=== PATIENT | male | born 1980 | race Caucasian/White ===

== ENCOUNTER → 2018-03-01 12:40 | Outpatient (CLI) | payer MEDICARE, MEDICAID, SELFPAY ==
--- NOTE | 2018-03-01 12:46 | VDUE_ITS ---
Reason For Study: CKD Right Arm Left Arm Right Cephalic Vein at the wrist Left Cephalic Vein at the wrist measures .43 measures .38 x .39 cm. x .46 cm. Right Cephalic Vein in the forearm Left Cephalic Vein in the forearm measures .40 x .41 cm. measures .46 x .47 cm. Right Cephalic Vein below antecub Left Cephalic Vein below antecub measures .35 x .38 cm. measures .42 x .46 cm. Right Cephalic Vein above antecub Left Cephalic Vein above antecub measures .57 x .62 cm. measures .46 x .53 cm. Right Cephalic Vein mid bicep measures .48 Left Cephalic Vein at mid bicep measures .49 x .41 cm. x .50 cm. Right Cephalic Vein at the shoulder Left Cephalic Vein at the shoulder measures .39 x .39 cm. measures .48 x .45 cm. Right Basilic Vein at the origin Basilic vein at origin measures .47 x .47 measures .51 x .55 cm. cm. Right Basilic Vein mid bicep measures .51 Basilic vein at bicep measures .47 x .49 cm. x .51 cm. Basilic vein above antecub measures .46 Right Basilic Vein above antecub x .46 cm. measures .54 x .59 cm. Brachial artery - .42 x .43 cm with a Brachial artery - .47 x .47 cm with a velocity of 122.0 cm/s velocity of 132.0 cm/s Radial artery - .21 x .21 cm with a velocity Radial artery - .19 x .21 cm with a velocity of 124.0 cm/s. of 106.0 cm/s. Interpretation Summary Widely patent and compressible bilateral cephalic and basilic veins with dimensions as noted Normal flow bilateral brachial and radial arteries. Ordering Physician: Hector Davis Referring Physician: Bria Azar Performed By: Jesica Farrell RVT ???
== END ==
PROVIDERS: Family Provider Family Medicine; PCP Family Medicine; Visit Provider Internal Medicine Nephrology
DX: Z01.818 Encounter for other preprocedural examination (principal); N18.4 Chronic kidney disease, stage 4 (severe)
CPT/HCPCS: 93970; 93971; G0365

== ENCOUNTER 2018-04-16 05:22 | Day surgery (SDC) | payer MEDICARE, MEDICAID, SELFPAY ==
--- NOTE | 2018-04-16 05:35 | EKG12_ITS ---
Test Reason : PRE OP Blood Pressure : / mmHG Vent. Rate : 087 BPM Atrial Rate : 087 BPM P-R Int : 136 ms QRS Dur : 096 ms QT Int : 402 ms P-R-T Axes : 013 002 -01 degrees QTc Int : 483 ms Normal sinus rhythm Prolonged QT Abnormal ECG No previous ECGs available Confirmed by VANNA CORTEZ, BHAKTI ([id number]), newspaper photo editor OLIVIA MONTANO ([id number]) on 04/20/2018 3:13:59 PM Referred By: Ryan Escudero Confirmed By:BHAKTI PRABHAKAR MD
[2018-04-16 05:45] VITALS: BP 147/87; PULSE 90; RESP 16; TEMP 36.1; O2SAT 97; BMI 41.5
[2018-04-16 06:11] LABS: Bedside Glucose 236 mg/dL (70-110)
[2018-04-16 06:22] LABS: Hematocrit 31.1 % (40-54); Hemoglobin 10.7 g/dl (13.0-16.5); Mean Corp Hgb Conc 34.4 g/gl (32-36); Mean Corpuscular Hgb 30.5 pg (27.0-32.0); Mean Corpuscular Volume 88.6 fL (80-94); Mean Platelet Vol. 10.2 fl (6.2-12.0); Platelet Count 269 K/mm3 (150-450); RBC Distribution Width CV 12.1 % (11.6-14.6); RBC Distribution Width SD 38.2 fl (35.1-43.9); Red Blood Count 3.51 M/mm3 (4.6-6.2); White Blood Count 8.4 K/mm3 (4.4-11.0)
[2018-04-16 06:30] LABS: Anion Gap 9 (5-15); BUN 41 mg/dL (7-18); BUN/Creat Ratio 9.6 RATIO (10-20); Calcium,Total 8.2 mg/dL (8.5-10.1); Chloride 107 mmol/L (98-107); Creatinine, Serum 4.28 mg/dL (0.70-1.30); EST Glomerular Filtration Rate 17 mL/min (>60); Est Glom Filt Rate - Afr Amer 20 mL/min (>60); Estimated Creatinine Clearance 28.01 ml/min; Glucose 273 mg/dL (74-106); Potassium 3.6 mmol/L (3.5-5.1); Sodium Level 144 mmol/L (136-145)
[2018-04-16 06:35] LABS: Scan Indicated on CBC? Y/N NO
--- NOTE | 2018-04-16 06:46 | DCINST_ITS ---
Discharge Diet: Renal Diet Discharge Activity: May Not Drive - for 2-3 days or while taking narcotic pain medications., May Shower, May Take a Tub Bath - in 5 days. Lifting Restrictions: 5 pounds Keep extremity elevated above heart level: - - Keep arm elevated above the heart level for 3 days. Additional Activity Instructions:: Exercise hand vigorously with a stress ball. Call your doctor if your incision/area has: Continuous Slow Oozing, Sudden Increased Bleeding - apply pressure and call your doctor., Increased Pain/ Swelling, Increased Redness, Foul Smelling Discharge Call your doctor if you observe: Fever of 101 or Higher Suture Line Care: Avoid Pulling/Pushing, Avoid Pinching/Bending Cleanse incision/area with: Keep Dressing Clean & Dry Additional Dressing/Incision Instructions:: Elevate your left arm for comfort. Please keep the dressings clean and dry. You may remove the Harinder wrap and dressings in 3 days. Leave the Steri-Strips on for 1 week. Allergies/Adverse Reactions: Allergies No Known Allergies Allergy (Verified 04/11/18 09:03) Medications to take at Discharge atorvastatin 20 mg tablet 20 mg PO QDAY 03/12/18 cholecalciferol (vitamin D3) 2,000 unit capsule 2,000 unit PO QDAY 03/12/18 clonidine HCl 0.1 mg tablet 0.2 mg PO BID 03/12/18 doxazosin 1 mg tablet 1 mg PO QDAY 03/12/18 famotidine 40 mg tablet 40 mg PO QDAY 03/12/18 furosemide 20 mg tablet 20 mg PO QDAY 03/12/18 gabapentin 300 mg capsule 300 mg PO 4X/DAY 03/12/18 hydralazine 50 mg tablet 50 mg PO TID 03/12/18 insulin aspart U-100 100 unit/mL subcutaneous pen 66 unit SC DAILY 03/12/18 insulin glargine (U-100) 100 unit/mL subcutaneous solution 50 unit SC DAILY 03/12/18 metoprolol succinate ER 100 mg tablet,extended release 24 hr 100 mg PO QDAY 03/12/18 vitamin B12 1,000 mcg-folic acid 400 mcg sublingual tablet 1,000 mg PO DAILY 03/12/18 Aspirin E.C. [Ecotrin] 81 mg PO DAILY@0800 04/10/18 Insulin Aspart [Novolog Flexpen] 54 units SC LUNCH 04/10/18 Insulin Aspart [Novolog Flexpen] 62 units SC DINNER 04/10/18 Insulin Glargine [Lantus SoloStar Pen] 30 units SC QHS 04/10/18 traMADol [Ultram] 50 mg PO Q6H PRN PRN #8 tablet 04/16/18 The following prescriptions were given: traMADol [Ultram] 50 mg PO Q6H PRN PRN #8 tablet PRN Reason: Pain Primary Care Physician: Bria Azar MD [Primary Care Provider] - Test Results: Test results from this visit will be discussed in further detail at your follow- up appointment, if applicable. Please Follow Up With: Ryan Escudero MD - [phone] When: Call to make an appointment for follow up in 10 days.
[2018-04-16] MEDS: Cefazolin 2 GM in 0.9% Normal Saline 100 ML IV (07:03)
[2018-04-16] MEDS: Heparin Injection (Vial) 5,000 UNIT/ML VIAL 5000 UNIT (07:30)
--- NOTE | 2018-04-16 09:17 | OP.PCM_ITS ---
Problem List (1) Chronic renal failure, stage 4 (severe) Status: Acute Report of Operation Date of Procedure: 04/16/18 Pre-Operative Diagnosis: Stage IV chronic renal insufficiency Post-Operative Diagnosis: Same Surgery/Procedure Performed:: Transposition left forearm cephalic vein to radial artery arteriovenous fistula creation Description of Surgical Findings:: Timeout and informed consent was obtained. 37-year-old gent was taken out room. Placed on the table. The left forearm was sterilely prepped and draped. Ultrasound was used to identify the course of the cephalic vein. 0.5% Marcaine mixed 50-50 with 1% lidocaine was used as local anesthetic. Initial 22 cc was injected. The patient Moving his arm so we converted to a LMA general anesthetic. A longitudinal incision was made up the lateral left radial aspect of the forearm. Sharp and blunt dissection was used to tediously dissect side branches free which was secured with 4-0 Vicryl ligatures and hemoclips. The s ections from all the way from the wrist up to the antecubital space. Then I marked the vein. Measured an area to re-tunneled the vein more medially. Marked an area of the radial artery to dissect free. I made a large to positional and dissected the radial artery free elevating it nicely. I then ligated the vein distally at a branch point. I spatulated it at the branch point. I re-tunneled it medial to the harvest incision close to the subcutaneous tissues. The patient then received 12,000 units of heparin. Peripheral vascular clamps were placed on the radial artery. 11 blade was used to make an arteriotomy with this extended with Long scissors. A end-to-side anastomosis created with running 7-0 Prolene. Prior to completion there appeared to be good antegrade flow. The anastomosis was completed. Initially did not appear to be good flow. Inspection revealed that there appeared to be some stenosis of the vein at the antecubital space. I was able to carefully incised the posterior wall of the vein to allow for release. Seem to work with there was good pulsatile flow with a nice audible thrill. It appeared to have a good positional lie. The wound was closed with interrupted 3-0 Vicryl. Wounds were then closed with a running septic or 4 Monocryl. Steri-Strips Telfa soft roll Harinder wrap applied. Sponge and instrument and needle counts were reported to the surgeon to be correct. Blood loss 100 cc. He tolerated the procedure well was taken to the recovery area in satisfactory condition without apparent complication. Specimens none. Drains none. Blood loss 100 cc. Ryan Escudero M.D., F.A.C.S. Type of Anesthesia:: General Anesthesiologist: Inez Arita
[2018-04-16] MEDS: Bupivacaine Mpf 0.5% 30 ML VIAL (09:45)
[2018-04-16 10:00] VITALS: BP 107/82; BP 147/87; PULSE 93; RESP 12; TEMP 36.5; O2SAT 97
[2018-04-16 10:06] LABS: Bedside Glucose 232 mg/dL (70-110)
[2018-04-16 10:15] VITALS: BP 132/85; BP 147/87; PULSE 89; RESP 16; O2SAT 93
[2018-04-16 10:30] VITALS: BP 116/82; BP 147/87; PULSE 88; RESP 16; TEMP 36.3; O2SAT 95
[2018-04-16 11:30] VITALS: BP 133/68; BP 147/87; PULSE 87; RESP 17; TEMP 36.6; O2SAT 97
== END 2018-04-16 11:46 | disposition home or self-care (01) ==
LOC: SDC 05:23 → AC 05:24
PROVIDERS: Family Provider Family Medicine; PCP Family Medicine; Visit Provider Surgery
PROC: (CPT 36821; principal; 2018-04-16 07:00)
DX: I12.9 Hypertensive chronic kidney disease with stage 1 through stage 4 chronic kidney disease, or unspecified chronic kidney disease (principal); E11.22 Type 2 diabetes mellitus with diabetic chronic kidney disease; N18.4 Chronic kidney disease, stage 4 (severe); E78.00 Pure hypercholesterolemia, unspecified; K21.9 Gastro-esophageal reflux disease without esophagitis; F17.220 Nicotine dependence, chewing tobacco, uncomplicated; Z79.4 Long term (current) use of insulin; Z79.82 Long term (current) use of aspirin; Z79.899 Other long term (current) drug therapy
CPT/HCPCS: 01844; 36821; 80048; 82962; 85027; 93005

== ENCOUNTER 2018-06-11 08:41 | Day surgery (SDC) | payer MEDICARE, MEDICAID, SELFPAY ==
[2018-06-08 07:11] VITALS: BMI 42.3
[2018-06-11 09:00] LABS: Hematocrit 33.4 % (40-54); Hemoglobin 11.4 g/dl (13.0-16.5); Mean Corp Hgb Conc 34.1 g/gl (32-36); Mean Corpuscular Hgb 29.8 pg (27.0-32.0); Mean Corpuscular Volume 87.4 fL (80-94); Mean Platelet Vol. 10.5 fl (6.2-12.0); Platelet Count 257 K/mm3 (150-450); RBC Distribution Width CV 11.9 % (11.6-14.6); RBC Distribution Width SD 37.8 fl (35.1-43.9); Red Blood Count 3.82 M/mm3 (4.6-6.2); White Blood Count 10.3 K/mm3 (4.4-11.0)
[2018-06-11 09:04] LABS: Scan Indicated on CBC? Y/N NO
[2018-06-11 09:19] LABS: Anion Gap 12 (5-15); BUN 52 mg/dL (7-18); BUN/Creat Ratio 9.6 RATIO (10-20); Calcium,Total 8.5 mg/dL (8.5-10.1); Chloride 104 mmol/L (98-107); EST Glomerular Filtration Rate 13 mL/min (>60); Est Glom Filt Rate - Afr Amer 16 mL/min (>60); Glucose 413 mg/dL (74-106); Potassium 3.8 mmol/L (3.5-5.1); Sodium Level 139 mmol/L (136-145)
--- NOTE | 2018-06-11 11:12 | OP.PCM_ITS ---
Problem List (1) Chronic renal failure, stage 4 (severe) Status: Acute (2) Problem with dialysis access Status: Acute Qualifiers: Encounter type: initial encounter Qualified Code(s): T82.898A - Other specified complication of vascular prosthetic devices, implants and grafts, initial encounter Report of Operation Date of Procedure: 06/11/18 Pre-Operative Diagnosis: Failure to mature transposed left forearm cephalic vein to radial artery arteriovenous hemodialysis fistula Post-Operative Diagnosis: Arterial venous anastomotic stenosis Surgery/Procedure Performed:: Carbon dioxide left upper extremity fistulogram with 4 x 20 mm Powerflex angioplasty Description of Surgical Findings:: Timeout and informed consent was obtained. 37-year-old gent was taken to the special procedures lab placement the table of the left extremity sterilely prepped.. Ultrasound was used to inspect the left forearm cephalic vein. The vast majority appear to be adequate there appeared to be relative narrowing close to the arterial anastomosis. And so I placed in a under ultrasound guidance 2% lidocaine into the mid forearm and then a micropuncture needle retrograde with flow the micropuncture wire then a 6 Moldovan short sheath dilator. I was able to use an 035 angled Glidewire and a 4 [place] angled [place] cath placed into the radial artery proximal to the anastomosis. I used 15 cc/inj. of carbon dioxide perform fistulogram. Did this of the forearm upper arm and chest area. This demonstrated stenosis at the arterial anastomotic site with a relatively small radial artery. Over the 035 Glidewire placed a 4 x 2 Powerflex balloon and performed balloon angioplasty up to 10 don of pressure. The patient had some mild discomfort so I did not attempt to go beyond that. The balloon was removed. A 4 Moldovan angled glide catheter was reinserted. Follow-up fistulogram now demonstrated improvement. There appeared to be wide open flow now through the fistula. The sheath was removed and a U suture of 4-0 nylon was placed blood loss was minimal no apparent complication Fistulogram demonstrates a widely patent left forearm transposed cephalic vein radial artery AV fistula with good upper arm chest cephalic vein and central venous outflow. There was clinically significant stenosis at the anastomosis but mostly secondary to a very small radial artery. Subsequent to the angioplasty now there appears to be improved flow. Ryan Escudero M.D., F.A.C.S. Type of Anesthesia:: Local
== END 2018-06-11 12:20 | disposition home or self-care (01) ==
LOC: CLSP 08:43
PROVIDERS: Family Provider Family Medicine; PCP Family Medicine; Referring Provider Surgery; Visit Provider Surgery
DX: T82.858A Stenosis of other vascular prosthetic devices, implants and grafts, initial encounter (principal); I12.9 Hypertensive chronic kidney disease with stage 1 through stage 4 chronic kidney disease, or unspecified chronic kidney disease; E11.22 Type 2 diabetes mellitus with diabetic chronic kidney disease; N18.4 Chronic kidney disease, stage 4 (severe); Z99.2 Dependence on renal dialysis; E78.00 Pure hypercholesterolemia, unspecified; Z79.4 Long term (current) use of insulin; Z79.82 Long term (current) use of aspirin; Z79.891 Long term (current) use of opiate analgesic; Z79.899 Other long term (current) drug therapy
CPT/HCPCS: 36415; 36902; 76937; 80048; 85027; 99152; 99153; Q9967; C1725; C1769

== ENCOUNTER → 2020-04-21 12:51 | Outpatient (CLI) | payer MEDICARE, MEDICAID, SELFPAY ==
[2020-04-21 12:39] VITALS: BMI 42.3
[2020-04-21 13:14] LABS: Absolute Neutrophil Count 6.3 X10^3/uL (2.0-7.7); Basophil# 0.07 X10^3/uL; Basophil% 0.6 % (0-1); Eosinophil# 0.24 X10^3/uL; Eosinophils% 2.1 % (0-5); Hematocrit 32.1 % (40-54); Hemoglobin 10.2 g/dL (13.0-16.5); Lymphocyte % 31.3 % (19-41); Mean Corp Hgb Conc 31.8 g/dL (32-36); Mean Corpuscular Hgb 29.8 pg (27.0-32.0); Mean Corpuscular Volume 93.9 fL (80-94); Mean Platelet Vol. 10.1 fl (6.2-12.0); Monocyte# 1.04 X10^3/uL; NRBC Flagged by Analyzer 0.6 % (0-5); Neutrophil % 54.8 % (47-70); Platelet Count 275 K/mm3 (150-450); RBC Distribution Width CV 15.4 % (11.6-14.6); RBC Distribution Width SD 52.6 fl (35.1-43.9); Red Blood Count 3.42 M/mm3 (4.6-6.2); White Blood Count 11.5 K/mm3 (4.4-11.0)
[2020-04-21 13:44] LABS: Anion Gap 11 (5-15); BUN 38 mg/dL (7-18); BUN/Creat Ratio 4.8 RATIO (10-20); Chloride 96 mmol/L (98-107); Creatinine, Serum 7.91 mg/dL (0.70-1.30); EST Glomerular Filtration Rate 8 mL/min (>60); Est Glom Filt Rate - Afr Amer 10 mL/min (>60); Glucose 285 mg/dL (74-106); Potassium 4.2 mmol/L (3.5-5.1); Sodium Level 134 mmol/L (136-145)
== END ==
PROVIDERS: PCP Internal Medicine; Referring Provider Surgery; Visit Provider Surgery
DX: T82.898A Other specified complication of vascular prosthetic devices, implants and grafts, initial encounter (principal)
CPT/HCPCS: 36415; 80048; 85025

== ENCOUNTER 2020-04-30 09:56 | Day surgery (SDC) | payer MEDICARE, MEDICAID, SELFPAY ==
[2020-04-21 12:39] VITALS: BMI 42.3
[2020-04-29 07:49] VITALS: BMI 37.2
--- NOTE | 2020-04-30 10:19 | PCM.HP.BLA ---
Problem List (1) Problem with dialysis access Status: Acute Qualifiers: History and Physical Date of Admission: 04/30/20 Intake Visit Reasons: Decreased Flows & Pressure Chief Complaint: decreased flows Shift Supervisor Melting Required: No Is patient in pain?: Yes (right leg) Allergies acetaminophen [From Tylenol] Allergy (Verified 04/21/20 12:39) Itching Medications atorvastatin 20 mg tablet 20 mg PO QDAY 03/12/18 [History Confirmed 04/21/20] cholecalciferol (vitamin D3) 50 mcg (2,000 unit) capsule 2,000 unit PO QDAY 03/12/18 [History Confirmed 04/21/20] famotidine 40 mg tablet 40 mg PO QDAY 03/12/18 [History Confirmed 04/21/20] gabapentin 300 mg capsule 300 mg PO 4X/DAY 03/12/18 [History Confirmed 04/21/20] Aspirin E.C. [Ecotrin] 81 mg PO DAILY@0800 04/10/18 [History Confirmed 04/21/20] metoprolol tartrate 100 mg tablet 100 mg PO BID 11/04/19 [History Confirmed 04/21/20] clonidine 0.2 mg/24 hr weekly transdermal patch 1 patch TRANSDERMAL QWEEK 12/05/19 [History Confirmed 04/21/20] heparin, porcine (PF) 1 unit/mL intravenous syringe unit INTRA-CATH 12/05/19 [History Confirmed 04/21/20] levetiracetam 250 mg tablet 250 mg PO BID 12/05/19 [History Confirmed 04/21/20] sertraline 50 mg tablet 50 mg PO DAILY 12/05/19 [History Confirmed 04/21/20] flash glucose sensor See Rx Instructions .ROUTE .MEDSUPPLY #2 ea 03/10/20 [Rx Confirmed 04/21/20] insulin regular hum U-500 conc 80 unit SC QPM #42 ml 03/24/20 [Rx Confirmed 04/21/20] [facility] Medical History Chronic renal failure, stage 4 (severe) (Acute) Asthma (Acute) Bone fracture (Acute) Depressive disorder, not elsewhere classified (Acute) Diabetes (Acute) GERD (gastroesophageal reflux disease) (Acute) Neuropathy (Acute) Renal failure (Acute) Seizure (Acute) Stomach ulcer (Acute) Vision problem (Acute) hypercholesterolemia (Acute) Chronic headache (Chronic) HTN (hypertension) (Chronic) Surgical History S/P right knee surgery (Acute) s/p right leg surgery (Acute) Status post aspiration of abscess (Acute) s/p left forearm AV transposition (Acute ~04/16/18) Family History Mother Diabetes Heart disease Hypertension CVA (cerebral vascular accident) Grandmother Diabetes Heart disease Hypertension Grandfather Diabetes Hypertension Uncle Heart disease Social History (Updated 04/21/20 @ 12:[address] Ryan Escudero MD) Smoking Status: Former smoker alcohol intake: never substance use type: does not use what type of physical activity do you participate in: none HPI HPI HPI: JESSICA LISA, is a 39 M who presents to the office today for surgical consultation regarding diminishing flows in his transposed left forearm cephalic vein radial artery AV fistula. He is referred by Dr. Davis and a written copy of my surgical consult recommendations will be returned to him. April 12 4018 I performed a transposition left forearm cephalic vein radial artery AV fistula creation. Then his most recent intervention was June 11 I performed a carbon oxide fistulogram with a 4 x 20 mm Powerflex angioplasty of the arterial anastomotic site with a relatively small radial artery. He states that his dialysis is been going well. He is had diminishing flow from 1200 now down to 500. He still was able to be dialyzed. HPI HPI HPI: JESSICA LISA, is a 39 M who presents to the office today for ROS General General: Yes weight change and fatigue; no appetite, colon cancer, breast cancer or weakness HEENT HEENT: No difficulty swallowing, eye injury, eye surgery, swollen glands or hoarseness Endo Endocrine: Yes diabetes mellitus; no thyroid disease, thyroid cancer, Hair loss, heat intolerance or cold intolerance Skin Skin: No rash or changing moles Breast Breast: No left breast lump, right breast lump, nipple discharge, breast pain, abnormal mammogram, abnormal US or breast enlargement Musc Musculoskeletal: Yes arthritis; no back problems, rheumatoid arthritis, gout or joint pain Cardio Cardiovascular: Yes high blood pressure; no murmur, pacemaker, heart disease, atrial fibrillation, heart attack, heart stent, palpitations, shortness of breat with exertion or chest pain Psych Psychiatric: No depression, anxiety or hearing voices Resp Respiratory: No shortness of breath, Yes sleep apnea, No cough, No COPD, Yes asthma, No emphysema, No wheezing Gastro Gastrointestinal: No abdominal pain, No nausea or vomiting, No diarrhea, No constipation, No blood in stool, Yes acid reflux, No hemorrhoids, No ulcers, No gallbladder problem, No black,tarry stools Javi Hematologic: Yes blood thinners, No blood disorders, No bleeding, No anemia, No blood clots Neuro Neurologic: No system reviewed and no additional complaints, except as docu, No as per HPI, No abnormal walking, No abnormal hearing, No abnormal movements, No abnormal speech, No behavioral changes, No burning sensations, No confusion, No seizure-like activity, No unsteadiness, No dizziness, No localized weakness, No frequent falls, No headache(s), No lack of coordination, No loss of vision, No memory loss, Yes numbness, No other visual disturbances, No radiating pain, No restless legs, No sensory deficit, No fainting, Yes tingling, No tremor(s), No weakness, No other Exam Const General: cooperative, comfortable, no acute distress Nutritional Appearance: obese morbidly obese Orientation: alert, awake, oriented x3 HENMT Head: normal to inspection Chest Breast Palpation: No nipple discharge Resp Effort & Inspection: normal respiratory effort Auscultation: clear to auscultation bilaterally Cardio Rate: regular rate Rhythm: regular rhythm Heart Sounds: no murmurs GI Palpation: soft Extrem Other: Left forearm transposed cephalic vein radial artery AV fistula with pulse and thrill and bruit. The hand is warm and viable. 1-2+ ulnar pulse. Adequate capillary refill. Psych Affect: normal affect Assessment & Plan Problems 1. Problem with dialysis access, initial encounter T82.228A Plan 39-year-old gentleman with diminishing flows in his transposed left forearm cephalic vein to radial artery AV fistula. It is functioning well for 2 years. He did have a previous fistulogram with a 4 x 2 Powerflex angioplasty of the anastomotic area. I recommend a left upper extremity fistulogram. I would anticipate using ultrasound to gain access to the fistula in the proximal forearm retrograde with flow. I anticipate endovascular intervention likely in the proximal fistula. Previously he has a known small radial artery. He has had an opportunity to ask and have questions answered. He will be continued on his low-dose aspirin 3 therapy. Copy: Dr. Susan Escudero M.D., F.A.C.S. Coding Level of Care Code 39704 Diagnoses Problem with dialysis access, initial encounter T82.898A ??Encounter type: initial encounter I have re-examined the patient. There are no clinical changes since date of exam. Procedure Criteria Procedure Type: Elective COVID Risk Discussion: The surgeon/proceduralist and patient have discussed in detail the risk of exposure to and/or potential harm posed by the COVID-19 virus with having a surgery/procedure at this time versus the risk of delaying the surgery/procedure. It is not possible to know either the risk of delaying the surgery or procedure or chance of getting an infection with perfect accuracy, but a joint decision was made between the patient and the surgeon/proceduralist to proceed at this time with the scheduled surgery/procedure as indicated on the consent form.
--- NOTE | 2020-04-30 11:04 | OP.PCM_ITS ---
Problem List (1) Problem with dialysis access Status: Acute Qualifiers: Report of Operation Date of Procedure: 04/30/20 Pre-Operative Diagnosis: Diminished flow left upper extremity radiocephalic arteriovenous hemodialysis fistula Post-Operative Diagnosis: Normal left upper extremity radial cephalic arteriovenous hemodialysis fistula Surgery/Procedure Performed:: Left upper extremity fistulogram Description of Surgical Findings:: Timeout and informed consent was obtained. 39-year-old gentleman was taken to the special procedures lab placed upon the table. He received 50 mcg of fentanyl 1 mg of Versed is intravenous sedation. The left upper extremity was sterilely prepped and draped. Ultrasound was used to identify the cephalic vein closer to the antecubital space. Under ultrasound guidance 2% lidocaine was instilled as a local anesthetic. Under ultrasound guidance a micropuncture needle was inserted in the cephalic vein retrograde with flow. It is of note that this was a transposed cephalic vein. Micropuncture wire inserted. 6 [place] short sheath dilator inserted. Using an 035 angled Glidewire and a 4 [place] angled glide cath access was gained to the radial artery proximal to the anastomosis. Using Isovue contrast a fistulogram was obtained. This demonstrated a widely patent venous to arterial anastomosis with all of the antegrade radial arterial flow going into the fistula with no distal flow noted. I then remove the catheter over the wire. The sheath was utilized for the remainder of the upper arm and chest studies. This was completed patient tolerated it well U suture of 4-0 nylon was placed pressure was held for hemostasis no apparent complication he tolerated it well. Images demonstrate a transposed cephalic vein to radial artery left forearm AV fistula. The entirety of the antegrade radial artery flow goes into the fistula. There is no evidence of clinically significant arterial anastomotic or proximal fistula stenosis. The forearm component of the fistula is widely patent. The basilic vein is stenotic at the antecubital area and although there is outflow to a degree from the basilic vein the majority the outflow is via the cephalic vein which is widely patent throughout. There is good central venous outflow with a bifurcated cephalic arch into the subclavian vein. There is good central venous outflow. No evidence of a clinically hemodynamically significant stenosis transposed left forearm radiocephalic AV fistula. No intervention indicated. Ryan Escudero M.D., F.A.C.S. Type of Anesthesia:: IV Sedation, Local
== END 2020-04-30 12:10 | disposition home or self-care (01) ==
LOC: CLSP 09:57
PROVIDERS: PCP Internal Medicine; Referring Provider Surgery; Visit Provider Surgery
DX: T82.898A Other specified complication of vascular prosthetic devices, implants and grafts, initial encounter (principal); Y82.8 Other medical devices associated with adverse incidents; E11.22 Type 2 diabetes mellitus with diabetic chronic kidney disease; I12.9 Hypertensive chronic kidney disease with stage 1 through stage 4 chronic kidney disease, or unspecified chronic kidney disease; N18.4 Chronic kidney disease, stage 4 (severe); J45.909 Unspecified asthma, uncomplicated; F32.9 Major depressive disorder, single episode, unspecified; K21.9 Gastro-esophageal reflux disease without esophagitis; E11.40 Type 2 diabetes mellitus with diabetic neuropathy, unspecified; E78.00 Pure hypercholesterolemia, unspecified; Z79.899 Other long term (current) drug therapy; Z79.82 Long term (current) use of aspirin; Z79.01 Long term (current) use of anticoagulants; Z79.4 Long term (current) use of insulin; Z87.891 Personal history of nicotine dependence; Z99.2 Dependence on renal dialysis; E66.01 Morbid (severe) obesity due to excess calories; Z68.37 Body mass index [BMI] 37.0-37.9, adult
CPT/HCPCS: 36901; 76937; 99152; 99153; Q9967; C1769

== ENCOUNTER → 2021-02-03 14:01 | Outpatient (CLI) | payer MEDICARE, MEDICAID, SELFPAY ==
[2021-02-03 13:05] VITALS: BMI 38.9
[2021-02-03 14:21] LABS: Absolute Lymphocyte Count 3.39 X10^3/uL (0.83-4.51); Basophil# 0.07 X10^3/uL; Basophil% 0.7 % (0-1); Eosinophil# 0.37 X10^3/uL; Eosinophils% 3.5 % (0-5); Hematocrit 34.5 % (40-54); Hemoglobin 11.6 g/dL (13.0-16.5); Lymphocyte # 3.39 X10^3/ul (0.83-4.51); Lymphocyte % 32.4 % (19-41); Mean Corp Hgb Conc 33.6 g/dL (32-36); Mean Corpuscular Hgb 30.4 pg (27.0-32.0); Mean Corpuscular Volume 90.6 fL (80-94); Mean Platelet Vol. 10.7 fl (6.2-12.0); Monocyte% 5.7 % (0-10); NRBC Flagged by Analyzer 0 % (0-5); Neutrophil # 5.95 X10^3/uL (2.7-7.7); Platelet Count 224 K/mm3 (150-450); RBC Distribution Width CV 13.5 % (11.6-14.6); RBC Distribution Width SD 44.6 fl (35.1-43.9); Red Blood Count 3.81 M/mm3 (4.6-6.2); White Blood Count 10.5 K/mm3 (4.4-11.0)
[2021-02-03 15:04] LABS: Anion Gap 8 (5-15); BUN 22 mg/dL (7-18); BUN/Creat Ratio 3.9 RATIO (10-20); Chloride 93 mmol/L (98-107); Creatinine, Serum 5.61 mg/dL (0.70-1.30); EST Glomerular Filtration Rate 12 mL/min (>60); Est Glom Filt Rate - Afr Amer 15 mL/min (>60); Glucose 296 mg/dL (74-106); Potassium 3.7 mmol/L (3.5-5.1); Sodium Level 134 mmol/L (136-145)
== END ==
PROVIDERS: PCP Internal Medicine; Referring Provider Physician Assistant; Visit Provider Physician Assistant
DX: T82.898A Other specified complication of vascular prosthetic devices, implants and grafts, initial encounter (principal); N18.4 Chronic kidney disease, stage 4 (severe)
CPT/HCPCS: 36415; 80048; 85025

== ENCOUNTER 2021-02-12 11:26 | Day surgery (SDC) | payer MEDICARE, MEDICAID, SELFPAY ==
[2021-02-03 13:05] VITALS: BMI 38.9
[2021-02-11 06:48] VITALS: BMI 38.7
--- NOTE | 2021-02-12 13:31 | PCM.HP.BLA ---
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 Is patient in pain?: No Allergies acetaminophen [From Tylenol] Allergy (Verified 02/03/21 13:09) Itching Medications atorvastatin 20 mg tablet 20 mg PO QDAY 03/12/18 [History Confirmed 02/03/21] cholecalciferol (vitamin D3) 50 mcg (2,000 unit) capsule 2,000 unit PO QDAY 03/12/18 [History Confirmed 02/03/21] famotidine 40 mg tablet 40 mg PO QDAY 03/12/18 [History Confirmed 02/03/21] gabapentin 300 mg capsule 300 mg PO 4X/DAY 03/12/18 [History Confirmed 02/03/21] aspirin 81 mg PO DAILY@0800 04/10/18 [History Confirmed 02/03/21] metoprolol tartrate 100 mg tablet 100 mg PO BID 11/04/19 [History Confirmed 02/03/21] clonidine 0.2 mg/24 hr weekly transdermal patch 1 patch TRANSDERMAL QWEEK 12/05/19 [History Confirmed 02/03/21] heparin, porcine (PF) 1 unit/mL intravenous syringe 1 unit INTRA-CATH DAILY 12/05/19 [History Confirmed 02/03/21] levetiracetam 250 mg tablet 250 mg PO BID 12/05/19 [History Confirmed 02/03/21] sertraline 50 mg tablet 50 mg PO DAILY 12/05/19 [History Confirmed 02/03/21] flash glucose sensor #2 ea 03/10/20 [Rx Confirmed 02/03/21] trazodone 50 mg tablet 50 mg PO QHS PRN 06/04/20 [History Confirmed 02/03/21] insulin glargine U-300 conc 300 unit/mL (1.5 mL) subcutaneous pen 80 unit SC DAILY #15 ml 07/02/20 [Rx Confirmed 02/03/21] Novolog Flexpen U-100 Insulin 100 unit/mL (3 mL) subcutaneous 80 unit SC TID #72 ml NS 11/19/20 [Rx Confirmed 02/03/21] PFSH Medical History (Updated 02/04/21 @ 09:19 by Eliane GARCES, PALauraC) Asthma Bone fracture Chronic headache Chronic renal failure, stage 4 (severe) Depressive disorder, not elsewhere classified Diabetes GERD (gastroesophageal reflux disease) HTN (hypertension) hypercholesterolemia Neuropathy Renal failure Seizure Stomach ulcer Vision problem Surgical History s/p left forearm AV transposition (~04/16/18) S/P right knee surgery s/p right leg surgery Status post aspiration of abscess Family History Mother Diabetes Heart disease Hypertension CVA (cerebral vascular accident) Grandmother Diabetes Heart disease Hypertension Grandfather Diabetes Hypertension Uncle Heart disease Social History Smoking Status: Former smoker alcohol intake: never substance use type: does not use what type of physical activity do you participate in: none HPI HPI HPI: JESSICA LISA, is a 40 M who presents to the office today for decreased thrill and bruit over the last 2 weeks. Patient denies pain/discomfort in the fistula. He notes he has been completing his entire treatments without ending early. He denies access bleeding. Dr. Escudero had performed a left upper extremity fistulogram on 04/30/20. Findings included normal left upper extremity radial cephalic AV fistula. No intervention was completed at that time. He dialyzes [facility] in [place]. ROS General General: Yes fatigue; No weight change, appetite, colon cancer, breast cancer or weakness HEENT HEENT: No difficulty swallowing, eye injury, eye surgery, swollen glands or hoarseness Endo Endocrine: Yes diabetes mellitus; No thyroid disease, thyroid cancer, Hair loss, heat intolerance or cold intolerance Cardio Cardiovascular: Yes high blood pressure; No murmur, pacemaker, heart disease, atrial fibrillation, heart attack, heart stent, palpitations, shortness of breat with exertion or chest pain Resp Respiratory: Yes shortness of breath, No sleep apnea, No cough, No COPD, No asthma, No emphysema and No wheezing Gastro Gastrointestinal: No abdominal pain, No nausea or vomiting, No diarrhea, No constipation, No blood in stool, No acid reflux, No hemorrhoids, No ulcers, No gallbladder problem and No black,tarry stools Neuro Neurologic: No weakness Exam Const General: cooperative, healthy appearing and comfortable [facility] Head: normal to inspection Eyes General: appearance normal, both eyes and all related structures Neck Neck: normal visual inspection Chest Chest palpation & inspection: normal inspection of the chest Resp Effort & Inspection: normal respiratory effort Auscultation: clear to auscultation bilaterally Cardio Rate: regular rate Rhythm: regular rhythm GI Inspection: normal to inspection Palpation: soft Auscultation: normal bowel sounds Skin General: no rashes or lesions noted Neuro General: no focal motor deficits and CN's II-XI intact bilaterally Extrem General: normal to inspection Psych Appearance: grossly normal Affect: normal affect Assessment and Plan Assessment and Plan (1) Problem with dialysis access: Status: Acute Qualifiers: Encounter type: initial encounter Qualified Code(s): T82.898A - Other specified complication of vascular prosthetic devices, implants and grafts, initial encounter Orders: Orders: Basic Metabolic Profile (BMP) 02/03/21 Plan - Eliane GARCES PA-C: Dr. Escudero will plan to perform a non-urgent left upper extremity fistulogram. Procedure details, risks and benefits have been explained to the patient. Patient has had the opportunity to ask and have questions answered. Patient verbally understands and agrees with the plan. Patient may continue to take his aspirin for the procedure. Plan Details Other Orders: Orders: Basic Metabolic Profile (BMP) 02/03/21 N18.4 CBC W/Diff, Automated 02/03/21 N18.4 Coding Level of Care Code Off vis,est,level 3 Diagnoses Problem with dialysis access T82.898A Encounter type: initial encounter I have re-examined the patient. There are no clinical changes since date of exam.
--- NOTE | 2021-02-12 14:36 | PCM.OPRPT ---
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 40-year-old gentleman was taken to the special procedures lab placed on the table. He received 50 mcg of fentanyl and 1 mg Versed attention sedation. The left extremity sterilely prepped draped. Ultrasound was used to identify the cephalic vein closer to the arterial anastomosis. 2% lidocaine was instilled under ultrasound guidance. Micropuncture needle inserted antegrade with flow. A 6 Salvadorean short sheath was inserted. Then a fistulogram was obtained of the left upper arm. This showed some aneurysmal change of the fistula in the forearm but no evidence of high-grade stenosis. Central outflow however at this cephalic vein subclavian vein junction and subclavian vein just proximal to the cephalic arch there is felt to be high-grade 70 to 80% stenosis. Was able to get a Glidewire past this area. Placed a 8 x 4 conquest balloon and balloon into his prostate was performed up to 35 don of pressure. 2 different positionings were performed. Final imaging now demonstrated an improvement in flow. A retrograde image was obtained of the arterial anastomosis. The radial artery was rather diminutive but the anastomosis otherwise appeared to be widely patent. The sheath was removed a U suture of 4-0 nylon was placed he tolerated procedure well no apparent complication Left upper extremity fistulogram demonstrates a radial to transposed basilic vein AV fistula. The basilic vein outflow suggest that it is very stenotic at its branching with the cephalic vein and although there is basilic vein outflow it is not getting the bulk of the flow from the cephalic vein. The cephalic vein is the main outflow and demonstrates some aneurysmal change in the forearm at 2 particular locations but no clinically significant stenosis. There is 70 to 80% central venous stenosis at the cephalic arch subclavian vein junction. This seems to be resolved subsequent to angioplasty. The remainder of the central venous outflow was stable. Impression: Successfully treated left extremity central venous stenosis with resolved outflow obstruction. 35 cc of Isovue utilized Ryan Escudero M.D., F.A.C.S. Surgeon: Ryan Escudero
== END 2021-02-12 15:30 | disposition home or self-care (01) ==
LOC: CLSP 11:27
PROVIDERS: PCP Internal Medicine; Referring Provider Surgery; Visit Provider Surgery
DX: T82.858A Stenosis of other vascular prosthetic devices, implants and grafts, initial encounter (principal); E78.00 Pure hypercholesterolemia, unspecified; E11.40 Type 2 diabetes mellitus with diabetic neuropathy, unspecified; E11.22 Type 2 diabetes mellitus with diabetic chronic kidney disease; I12.9 Hypertensive chronic kidney disease with stage 1 through stage 4 chronic kidney disease, or unspecified chronic kidney disease; N18.4 Chronic kidney disease, stage 4 (severe); K21.9 Gastro-esophageal reflux disease without esophagitis; Z87.891 Personal history of nicotine dependence; Z79.82 Long term (current) use of aspirin; Z79.4 Long term (current) use of insulin; Z99.2 Dependence on renal dialysis; Z79.899 Other long term (current) drug therapy
CPT/HCPCS: 36902; 76937; 99152; 99153; Q9967; C1725; C1769

== ENCOUNTER → 2021-12-09 | Outpatient (CLI) | payer MEDICARE, MEDICAID, SELFPAY ==
[2021-12-09 16:24] LABS: ALB/GLOB Ratio 0.7 RATIO (0.9-2.4); AST(SGOT) 17 U/L (15-37); Alanine Aminotransfer ALT/SGPT 20 U/L (16-61); Albumin, Serum 3.3 g/dL (3.2-5.0); Alkaline Phosphatase 166 U/L (45-117); Anion Gap 10 (5-15); BUN 26 mg/dL (7-18); BUN/Creat Ratio 4.2 RATIO (10-20); Calcium,Total 8.7 mg/dL (8.5-10.1); Chloride 100 mmol/L (98-107); Cholesterol 107 mg/dL (200); Creatinine, Serum 6.16 mg/dL (0.70-1.30); EST Glomerular Filtration Rate 11 mL/min (>60); Est Glom Filt Rate - Afr Amer 13 mL/min (>60); Globulin 4.7 g/dL (2.2-4.2); Glucose 312 mg/dL (74-106); High Density Lipoprotein 32 mg/dL; Potassium 3.2 mmol/L (3.5-5.1); Sodium Level 139 mmol/L (136-145); Thyroid Stim Hormone (TSH) 0.52 uIU/mL (0.358-3.74); Triglycerides 268 mg/dL; Very Low Density Lipoprotein 54 mg/dL (5-40)
[2021-12-13 08:54] LABS: Vitamin D,25 Hydroxy 14.9 ng/mL
== END | disposition home or self-care (01) ==
LOC: BIMLAB 13:39
PROVIDERS: PCP Internal Medicine; Referring Provider Nurse Practitioner Family; Visit Provider Nurse Practitioner Family
DX: E11.65 Type 2 diabetes mellitus with hyperglycemia (principal); E11.22 Type 2 diabetes mellitus with diabetic chronic kidney disease; N18.4 Chronic kidney disease, stage 4 (severe); Z79.4 Long term (current) use of insulin
CPT/HCPCS: 36415; 80053; 80061; 82306; 84443

== ENCOUNTER 2023-03-13 11:18 | Day surgery (SDC) | payer MEDICARE, MEDICAID, SELFPAY ==
--- NOTE | 2023-03-13 11:37 | HP.PCM_ITS ---
History and Physical Date of Admission: 03/13/23 Chief Complaint: recheck fistula Allergies acetaminophen [From Tylenol] Allergy (Verified 03/02/23 09:45) Itching Medications atorvastatin 20 mg tablet 20 mg PO QDAY 03/12/18 [History Confirmed 03/02/23] cholecalciferol (vitamin D3) 50 mcg (2,000 unit) capsule 2,000 unit PO QDAY 03/12/18 [History Confirmed 03/02/23] famotidine 40 mg tablet 40 mg PO QDAY 03/12/18 [History Confirmed 03/02/23] gabapentin 300 mg capsule 300 mg PO 4X/DAY 03/12/18 [History Confirmed 03/02/23] aspirin 81 mg tablet,delayed release 81 mg PO DAILY@0800 04/10/18 [History Confirmed 03/02/23] metoprolol tartrate 100 mg tablet 100 mg PO BID 11/04/19 [History Confirmed 03/02/23] clonidine 0.2 mg/24 hr weekly transdermal patch 1 patch transdermal QWEEK 12/05/19 [History Confirmed 03/02/23] heparin, porcine (PF) 1 unit/mL intravenous syringe 1 unit intra-catheter DAILY 12/05/19 [History Confirmed 03/02/23] levetiracetam 250 mg tablet (Keppra) 250 mg PO BID 12/05/19 [History Confirmed 03/02/23] blood sugar diagnostic (True Metrix Glucose Test Strip) #50 ea 06/01/21 [Rx Confirmed 03/02/23] blood-glucose meter (True Metrix Glucose Meter) #1 ea 06/01/21 [Rx Confirmed 03/02/23] nystatin 100,000 unit/gram topical cream topical 06/01/21 [History Confirmed ] Novolog FlexPen U-100 Insulin 100 unit/mL (3 mL) subcutaneous (insulin aspart U- 100) 80 unit (0.8 mL) subcut TID #96 mL 11/01/21 [Rx Confirmed 03/02/23] Toujeo Max U-300 SoloStar 300 unit/mL (3 mL) subcutaneous insulin pen (insulin glargine U-300 conc) 80 unit (0.2667 mL) subcut DAILY #6 mL 11/01/21 [Rx Confirmed 03/02/23] gabapentin 600 mg tablet 600 mg PO 12/09/21 [History Confirmed 03/02/23] cholecalciferol (vitamin D3) 1,250 mcg (50,000 unit) capsule 1,250 mcg PO QWEEK #12 caps 12/13/21 [Rx Confirmed 03/02/23] losartan 25 mg tablet tablet PO 03/17/22 [History Confirmed 03/02/23] minoxidil 2.5 mg tablet tablet PO 03/17/22 [History Confirmed 03/02/23] flash glucose sensor (FreeStyle Ezio 14 Day Sensor kit) #2 ea 03/31/22 [Rx Confirmed 03/02/23] Assessment and Plan Assessment and Plan (1) Problem with dialysis access: Status: Acute Qualifiers: Encounter type: initial encounter Qualified Code(s): T82.898A - Other specified complication of vascular prosthetic devices, implants and grafts, initial encounter Plan: Received a phone call from [facility] yesterday stating they attempted to schedule the patient for a fistulogram at an outside facility however no one had any openings. Patient was then sent to [facility], where he had chest catheters placed in order to avoid using the fistula for dialysis. Patient now has chest catheters. I had advised the patient that he have an urgent fistulogram as his fistula had a pulse, weak bruit and thrill last week. I stressed that his fistula may clot prior to Dr. Escudero being able to perform a fistulogram and a re-creation of a fistula may be needed. Patient again is very adamant that Dr. Escudero perform the fistulogram. Patient is being urgently added- on for 03/13/23 for a left forearm fistulogram with Dr. Escudero. Dialysis center is aware and had the patient at the center when I had contacted them yesterday. Patient instructions were faxed to the dialysis center with arrival time for the patient. Dialysis said they would adjust the patient's time in order to accommodate the fistulogram procedure. 03/09/23 1319 <Electronically signed by Eliane GARCES PA-C> Date Eliane Ma PA-C cc: Dr. 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 Is patient in pain?: No Allergies acetaminophen [From Tylenol] Allergy (Verified 03/02/23 09:45) Itching Medications atorvastatin 20 mg tablet 20 mg PO QDAY 03/12/18 [History Confirmed 03/02/23] cholecalciferol (vitamin D3) 50 mcg (2,000 unit) capsule 2,000 unit PO QDAY 03/12/18 [History Confirmed 03/02/23] famotidine 40 mg tablet 40 mg PO QDAY 03/12/18 [History Confirmed 03/02/23] gabapentin 300 mg capsule 300 mg PO 4X/DAY 03/12/18 [History Confirmed 03/02/23] aspirin 81 mg tablet,delayed release 81 mg PO DAILY@0800 04/10/18 [History Confirmed 03/02/23] metoprolol tartrate 100 mg tablet 100 mg PO BID 11/04/19 [History Confirmed 03/02/23] clonidine 0.2 mg/24 hr weekly transdermal patch 1 patch transdermal QWEEK 12/05/19 [History Confirmed 03/02/23] heparin, porcine (PF) 1 unit/mL intravenous syringe 1 unit intra-catheter DAILY 12/05/19 [History Confirmed 03/02/23] levetiracetam 250 mg tablet (Keppra) 250 mg PO BID 12/05/19 [History Confirmed 03/02/23] blood sugar diagnostic (True Metrix Glucose Test Strip) #50 ea 06/01/21 [Rx Confirmed 03/02/23] blood-glucose meter (True Metrix Glucose Meter) #1 ea 06/01/21 [Rx Confirmed 03/02/23] nystatin 100,000 unit/gram topical cream topical 06/01/21 [History Confirmed 03/02/23] Novolog FlexPen U-100 Insulin 100 unit/mL (3 mL) subcutaneous (insulin aspart U- 100) 80 unit (0.8 mL) subcut TID #96 mL 11/01/21 [Rx Confirmed 03/02/23] Toujeo Max U-300 SoloStar 300 unit/mL (3 mL) subcutaneous insulin pen (insulin glargine U-300 conc) 80 unit (0.2667 mL) subcut DAILY #6 mL 11/01/21 [Rx Confirmed 03/02/23] gabapentin 600 mg tablet 600 mg PO 12/09/21 [History Confirmed 03/02/23] cholecalciferol (vitamin D3) 1,250 mcg (50,000 unit) capsule 1,250 mcg PO QWEEK #12 caps 12/13/21 [Rx Confirmed 03/02/23] losartan 25 mg tablet tablet PO 03/17/22 [History Confirmed 03/02/23] minoxidil 2.5 mg tablet tablet PO 03/17/22 [History Confirmed 03/02/23] flash glucose sensor (FreeStyle Ezio 14 Day Sensor kit) #2 ea 03/31/22 [Rx Confirmed 03/02/23] PFSH Medical History Asthma Bone fracture Chronic headache Chronic renal failure, stage 4 (severe) Depressive disorder, not elsewhere classified Diabetes GERD (gastroesophageal reflux disease) HTN (hypertension) hypercholesterolemia Neuropathy Renal failure Seizure Stomach ulcer Vision problem Surgical History s/p left forearm AV transposition (~04/16/18) S/P right knee surgery s/p right leg surgery Status post aspiration of abscess Family History Mother Diabetes Heart disease Hypertension CVA (cerebral vascular accident)Grandmother Diabetes Heart disease HypertensionGrandfather Diabetes HypertensionUncle Heart disease Social History Smoking Status: Current some day smoker tobacco type: smokeless tobacco alcohol intake: never substance use type: does not use what type of physical activity do you participate in: none HPI HPI HPI: Patient is a 42 y/o M I am following for chronic renal failure on hemodialysis. Patient notes for approximately 1 months he has been having difficulty with his fistula. He notes they have infiltrated him as well as an aneurysm noted. Patient notes his fistula has been working well prior to this past month. Patient notes he is still able to complete dialysis treatments. Patient denies post-treatment bleeding. Patient's last fistulogram was on 02/12/[address] Escudero which demonstrated 70 to 80% stenosis at the cephalic arch, subclavian vein venous outflow. An 8 x 4 conquest balloon angioplasty was used successfully. Patient notes approximately 1 year ago, in December, he fell in the shower and landed just right on his back. Patient states he was paralyzed due to the fall. he was hospitalized for 3 months and had to learn how to care for himself. Patient has a suprapubic catheter and does have some bowel function, however he also has accidents. Patient is in a motorized scooter. ROS General General: Yes fatigue; No weight change, appetite, colon cancer, breast cancer or weakness HEENT HEENT: No difficulty swallowing, eye injury, eye surgery, swollen glands or hoarseness Endo Endocrine: Yes diabetes mellitus; No thyroid disease, thyroid cancer, Hair loss, heat intolerance or cold intolerance Cardio Cardiovascular: Yes high blood pressure; No murmur, pacemaker, heart disease, atrial fibrillation, heart attack, heart stent, palpitations, shortness of breat with exertion or chest pain Resp Respiratory: Yes shortness of breath, No sleep apnea, No cough, No COPD, No asthma, No emphysema and No wheezing Gastro Gastrointestinal: No abdominal pain, No nausea or vomiting, No diarrhea, No constipation, No blood in stool, No acid reflux, No hemorrhoids, No ulcers, No gallbladder problem and No black,tarry stools Neuro Neurologic: No weakness Exam Extrem Other: Left forearm radiocephalic AV fistula- good pulse. Very diminished bruit and thrill. Two locations of aneurysmal changes. Inferior aneurysm area with a slight erythema noted. No ulceration noted at that site. Skin intact. Assessment and Plan Assessment and Plan (1) Problem with dialysis access: Status: Acute Qualifiers: Encounter type: initial encounter Qualified Code(s): T82.898A - Other specified complication of vascular prosthetic devices, implants and grafts, initial encounter Plan: Patient has a left forearm radiocephalic AV fistula with a very diminished bruit and thrill. Fistula still has a pulse. Dr. Escudero will be out of the office for some time and will not be able to perform an urgent fistulogram. Patient does require urgent treatment. Our office contacted [facility] to update them. They were provided the 2 locations that we have had to use in the past. [facility] will contact and schedule patient for an urgent fistulogram. Patient would prefer to stay here, however understands the urgency and the possibility that f he chooses to delay treatment, we may loose the fistula. P atient verbally understands and agrees with the plan. Coding Level of Care Code Off vis,est,level 3 Diagnoses Problem with dialysis access, initial encounter T82.898A Encounter type: initial encounter I have examined the patient and the H&P has been reviewed. There are no clinical changes since date of exam. Ryan Escudero M.D., F.A.Cs
--- NOTE | 2023-03-13 13:20 | PCM.OPRPT ---
Report of Operation Date of Procedure: 03/13/23 Pre-Operative Diagnosis: Diminished flow left radial cephalic arteriovenous hemodialysis fistula Post-Operative Diagnosis: Diminished flow left radiocephalic arteriovenous hemodialysis fistula with high-grade cephalic arch stenosis Surgery/Procedure Performed:: Left upper extremity fistulogram with 8 x 2 Cutting Balloon angioplasty of the cephalic arch Description of Surgical Findings:: Timeout informed consent was obtained. 50-year-old gentleman was taken to the special procedures lab placed on the table. 50 mcg fentanyl and 2 mg of Versed were given as intravenous sedation. The left upper extremity was sterilely prepped and draped. I was able to palpate the cephalic vein at the wrist 2% lidocaine was instilled micropuncture needle was inserted antegrade with flow micropuncture wire inserted 6 Prydeinig short sheath dilator was inserted. Using Isovue contrast a fistulogram was obtained of the forearm upper arm and central chest area. The cephalic vein appeared to be widely patent throughout except for very high grade 99% stenosis of the cephalic arch over a distance of approximately 3 cm. I was able to up sheath to a 7 Prydeinig sheath and then placed an SV 5 wire and then was able to place an 8 x 2 Cutting Balloon. Several different insufflations were required to break the very tight stenosis. Good release however was achieved. I treated the cephalic vein subclavian vein junction as well. Completion views demonstrated absolute complete resolution of the stenosis with a smooth appearing vessel and wide open flow. I did not feel that additional treatment with a DCB or stent was indicated at this time The balloon wire removed sheath was removed and a U suture sterile nominal was placed. There was resumption of a palpable thrill. No apparent complication he tolerated it well. Images demonstrate to mild aneurysmal changes of the cephalic vein of the forearm. The upper arm cephalic vein nicely intact. High-grade 99% stenosis of the cephalic arch with otherwise good central venous outflow. Subsequent to the Cutting Balloon angioplasty there is complete resolution of the cephalic arch stenosis. Ryan Escudero M.D., F.A.C.S. Surgeon: Ryan Escudero Type of Anesthesia: IV Sedation
== END 2023-03-13 14:32 | disposition home or self-care (01) ==
LOC: CLSP 11:22
PROVIDERS: PCP Internal Medicine; Referring Provider Surgery; Visit Provider Surgery
DX: T82.898A Other specified complication of vascular prosthetic devices, implants and grafts, initial encounter (principal); Z99.2 Dependence on renal dialysis; E11.22 Type 2 diabetes mellitus with diabetic chronic kidney disease; E11.40 Type 2 diabetes mellitus with diabetic neuropathy, unspecified; N18.4 Chronic kidney disease, stage 4 (severe); Z79.4 Long term (current) use of insulin; I12.9 Hypertensive chronic kidney disease with stage 1 through stage 4 chronic kidney disease, or unspecified chronic kidney disease; E78.00 Pure hypercholesterolemia, unspecified; Z79.82 Long term (current) use of aspirin; Z79.899 Other long term (current) drug therapy; X58.XXXA Exposure to other specified factors, initial encounter
CPT/HCPCS: 36902; 99152; 99153; Q9967; C1725; C1769; C1894

== ENCOUNTER → 2023-12-12 | Outpatient (CLI) | payer MEDICARE, MEDICAID, SELFPAY ==
[2023-12-12 09:22] LABS: Absolute Lymphocyte Count 2.04 X10^3/uL (0.83-4.51); Absolute Neutrophil Count 3.7 X10^3/uL (2.0-7.7); Basophil# 0.08 X10^3/uL; Basophil% 1.1 % (0-1); Eosinophil# 0.57 X10^3/uL; Eosinophils% 8.1 % (0-5); Hematocrit 37.7 % (40-54); Lymphocyte # 2.04 X10^3/ul (0.83-4.51); Mean Corp Hgb Conc 31.8 g/dL (32-36); Mean Corpuscular Hgb 29.3 pg (27.0-32.0); Mean Corpuscular Volume 92.2 fL (80-94); Mean Platelet Vol. 9.2 fl (6.2-12.0); Monocyte# 0.66 X10^3/uL; Monocyte% 9.4 % (0-10); NRBC Flagged by Analyzer 0 % (0-5); Neutrophil # 3.66 X10^3/uL (2.7-7.7); Neutrophil % 52.1 % (47-70); Platelet Count 198 K/mm3 (150-450); RBC Distribution Width CV 14.7 % (11.6-14.6); RBC Distribution Width SD 49.4 fl (35.1-43.9); Red Blood Count 4.09 M/mm3 (4.6-6.2)
[2023-12-12 11:04] LABS: Anion Gap 8 (5-15); BUN 41 mg/dL (7-18); BUN/Creat Ratio 5.1 RATIO (10-20); Calcium,Total 9.6 mg/dL (8.5-10.1); Chloride 100 mmol/L (98-107); Creatinine, Serum 8.02 mg/dL (0.70-1.30); EST Glomerular Filtration Rate 8 mL/min (>60); Est Glom Filt Rate - Afr Amer 10 mL/min (>60); Glucose 254 mg/dL (74-106); Potassium 6.2 mmol/L (3.5-5.1); Sodium Level 135 mmol/L (136-145)
== END | disposition home or self-care (01) ==
PROVIDERS: PCP Internal Medicine; Referring Provider Physician Assistant; Visit Provider Physician Assistant
DX: N18.5 Chronic kidney disease, stage 5 (principal); T82.898A Other specified complication of vascular prosthetic devices, implants and grafts, initial encounter
CPT/HCPCS: 36415; 80048; 85025

== ENCOUNTER 2023-12-21 11:47 | Day surgery (SDC) | payer MEDICARE, MEDICAID, SELFPAY ==
[2023-12-20 07:56] VITALS: BMI 32.5
--- NOTE | 2023-12-21 12:21 | HP.PCM_ITS ---
History and Physical Date of Admission: 12/21/23 Visit Reasons: DECREASED AFT Chief Complaint: decreased AFT Is patient in pain?: No Allergies acetaminophen (From Tylenol) Allergy (Verified 12/12/23 08:42) Itching Medications ?Medication ?Instructions ?Recorded ?Confirmed ?Type atorvastatin 20 mg tablet 20 mg PO QDAY 03/12/18 12/12/23 History cholecalciferol (vitamin D3) 50 2,000 unit PO QDAY 03/12/18 12/12/23 History mcg (2,000 unit) capsule famotidine 40 mg tablet 40 mg PO QDAY 03/12/18 12/12/23 History gabapentin 300 mg capsule 300 mg PO 4X/DAY 03/12/18 12/12/23 History aspirin 81 mg tablet,delayed 81 mg PO DAILY@0800 04/10/18 12/12/23 History release metoprolol tartrate 100 mg tablet 100 mg PO BID 11/04/19 12/12/23 History clonidine 0.2 mg/24 hr weekly 1 patch transdermal QWEEK 12/05/19 12/12/23 History transdermal patch heparin, porcine (PF) 1 unit/mL 1 unit intra-catheter DAILY 12/05/19 12/12/23 History intravenous syringe levetiracetam 250 mg tablet 250 mg PO BID 12/05/19 12/12/23 History (Arti) blood sugar diagnostic (True #50 ea 06/01/21 12/12/23 Rx Metrix Glucose Test Strip) blood-glucose meter (True Metrix #1 ea 06/01/21 12/12/23 Rx Glucose Meter) nystatin 100,000 unit/gram topical topical 06/01/21 12/12/23 History cream Novolog FlexPen U-100 Insulin 100 80 unit (0.8 mL) subcut TID #96 mL 11/01/21 12/12/23 Rx unit/mL (3 mL) subcutaneous (insulin aspart U-100) Toujeo Max U-300 SoloStar 300 80 unit (0.2667 mL) subcut DAILY 11/01/21 12/12/23 Rx unit/mL (3 mL) subcutaneous #6 mL insulin pen (insulin glargine U-300 conc) gabapentin 600 mg tablet 600 mg PO 12/09/21 12/12/23 History cholecalciferol (vitamin D3) 1,250 1,250 mcg PO QWEEK #12 caps 12/13/21 12/12/23 Rx mcg (50,000 unit) capsule losartan 25 mg tablet tablet PO 03/17/22 12/12/23 History minoxidil 2.5 mg tablet tablet PO 03/17/22 12/12/23 History flash glucose sensor (FreeStyle #2 ea 03/31/22 12/12/23 Rx Ezio 14 Day Sensor kit) PFS Medical History Vision problem Stomach ulcer Seizure Neuropathy Chronic headache Bone fracture Asthma GERD (gastroesophageal reflux disease) Depressive disorder, not elsewhere classified Chronic renal failure, stage 4 (severe) HTN (hypertension) hypercholesterolemia Renal failure Diabetes Surgical History S/P right knee surgery s/p right leg surgery s/p left forearm AV transposition (~04/16/18) Status post aspiration of abscess Family History Mother Diabetes Heart disease Hypertension CVA (cerebral vascular accident)Grandmother Diabetes Heart disease HypertensionGrandfather Diabetes HypertensionUncle Heart disease Social History Smoking Status: Current some day smoker tobacco type: cigarettes and smokeless tobacco alcohol intake: never substance use type: does not use what type of physical activity do you participate in: none HPI HPI Surgical H&P: Yes HPI: Patient is a 43 y/o M I am seeing for difficulty with cannulation and increased clotting of the fistula. Patient notes since his last office visit with us, he has been hospitalized multiple times for new onset of A fib and GI bleed. Patient was placed on blood thinners when he had developed a GI bleed. He notes he is on a daily 81 mg aspirin. He notes for the last month, dialysis has been having difficulties with cannulation and blood clots. He notes he is able to complete each treatment. Patient's last intervention was on 03/13/[address] Escudero. 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 An 8 x 2 cutting balloon angioplasty was used at the cephalic arch. ROS General General: Yes fatigue; No weight change, appetite, colon cancer, breast cancer or weakness HEENT HEENT: No difficulty swallowing, eye injury, eye surgery, swollen glands or hoarseness Endo Endocrine: Yes diabetes mellitus; No thyroid disease, thyroid cancer, Hair loss, heat intolerance or cold intolerance Cardio Cardiovascular: Yes high blood pressure; No murmur, pacemaker, heart disease, atrial fibrillation, heart attack, heart stent, palpitations, shortness of breat with exertion or chest pain Resp Respiratory: Yes shortness of breath, No sleep apnea, No cough, No COPD, No asthma, No emphysema and No wheezing Gastro Gastrointestinal: No abdominal pain, No nausea or vomiting, No diarrhea, No constipation, No blood in stool, No acid reflux, No hemorrhoids, No ulcers, No gallbladder problem and No black,tarry stools Neuro Neurologic: No weakness Exam Const General: cooperative, healthy appearing and comfortable [facility] Head: normal to inspection Eyes General: appearance normal, both eyes and all related structures Neck Neck: normal visual inspection Neck mass: No Resp Effort & Inspection: normal respiratory effort Auscultation: clear to auscultation bilaterally Cardio Rate: regular rate Rhythm: regular rhythm GI Inspection: normal to inspection Palpation: soft Auscultation: normal bowel sounds Musc Cervical Spine: normal cervical lordosis Skin General: no rashes or lesions noted Neuro General: no focal motor deficits and CN's II-XI intact bilaterally Extrem Other: Left forearm fistula- good pulse, diminished bruit and thrill Psych Appearance: grossly normal Affect: normal affect Assessment and Plan Assessment and Plan (1) Problem with dialysis access: Status: Acute Qualifiers: Encounter type: initial encounter Qualified Code(s): T82.898A - Other specified complication of vascular prosthetic devices, implants and grafts, init ial encounter Plan: Dr. Escudero will plan to perform a left forearm fistulogram. Procedure details, risks and benefits have been explained. Patient may continue his daily aspirin. Patient has had the opportunity to ask and have questions answered. Patient verbally understands and agrees with the proposed plan. Plan to obtain a CBC and BMP today. I have examined the patient and the H&P has been reviewed. There are no clinical changes since date of exam. Ryan Escudero M.D., F.A.C.S.
--- NOTE | 2023-12-21 13:15 | OP.PCM_ITS ---
Report of Operation Date of Procedure: 12/21/23 Pre-Operative Diagnosis: Diminished flow left upper extremity brachiocephalic a rteriovenous hemodialysis fistula Post-Operative Diagnosis: Mid left upper arm and cephalic arch stenosis Surgery/Procedure Performed:: Left upper extremity fistulogram with mid upper arm 8 x 2 Cutting Balloon angioplasty and cephalic arch 8 x 2 Cutting Balloon angioplasty Description of Surgical Findings:: Timeout informed consent was obtained. 43-year-old gentleman was taken to the special procedures lab placed upon the table. Throughout the procedure and aliquots he received a total of 100 mcg of fentanyl and 1 mg Versed is intravenous sedation. Under ultrasound guidance 2% lidocaine was instilled closer to the wrist micropuncture needle inserted micropuncture wire inserted 6 [place]ar[place] short sheath dilator inserted fistulogram was obtained of the upper arm. This demonstrated in the mid upper arm a venous valve that appeared to be moderately narrowed. There is evidence of high-grade 95% stenosis at the cephalic arch. Otherwise good central venous outflow. I up sheath to a 7 [place] sheath. Because of the patient's history of clotting on dialysis I did give a single dose of 5000 units of heparin IV. Was then able to get the 8 x 2 Cutting Balloon passed a very snug area at the cephalic arch and repetitive balloon angioplasty was performed of this area up to 10 don of pressure. I wit hdrew the balloon in the mid upper arm treated the tight valve with a single inflation. Completion fistulogram for now demonstrated what appeared to be complete resolution of the cephalic arch stenosis and improvement in the valvular stenosis. There appeared to be significant flow improvement throughout the fistula. While I had the balloon in the mid upper arm at the valve I tried to do a retrograde injection however the antegrade flow was so strong that I could not get the arterial site image. Clinically however he has marvelous inflow. Images demonstrate a left upper extremity radiocephalic arteriovenous hemodialysis fistula. The mid upper arm there is valvular stenosis at the cephalic arch there is high-grade 95% stenosis. Subsequent to the 8 x 2 Cutting Balloon angioplasty there is improvement in the valvular stenosis in the mid upper arm of the cephalic vein and there is resolution of the cephalic arch stenosis. The patient has had a good lasting result as his previous fistulogram was February 2023. I elected not to proceed with drug-coated balloons or stents at this time. Ryan Escudero M.D., F.A.C.S. Surgeon: Ryna Escudero Type of Anesthesia: IV Sedation
== END 2023-12-21 14:15 | disposition home or self-care (01) ==
PROVIDERS: PCP Internal Medicine; Referring Provider Surgery; Visit Provider Surgery
DX: T82.856A Stenosis of peripheral vascular stent, initial encounter (principal); N18.4 Chronic kidney disease, stage 4 (severe); I48.91 Unspecified atrial fibrillation; E11.40 Type 2 diabetes mellitus with diabetic neuropathy, unspecified; E11.22 Type 2 diabetes mellitus with diabetic chronic kidney disease; Z79.4 Long term (current) use of insulin; K92.2 Gastrointestinal hemorrhage, unspecified; E78.00 Pure hypercholesterolemia, unspecified; I12.9 Hypertensive chronic kidney disease with stage 1 through stage 4 chronic kidney disease, or unspecified chronic kidney disease; Z79.899 Other long term (current) drug therapy; Z79.82 Long term (current) use of aspirin; J45.909 Unspecified asthma, uncomplicated; K21.9 Gastro-esophageal reflux disease without esophagitis; F17.210 Nicotine dependence, cigarettes, uncomplicated; F17.220 Nicotine dependence, chewing tobacco, uncomplicated; Z79.01 Long term (current) use of anticoagulants; Z99.2 Dependence on renal dialysis; Y71.8 Miscellaneous cardiovascular devices associated with adverse incidents, not elsewhere classified
CPT/HCPCS: 36902; 76937; 99152; 99153; Q9967; C1725; C1769; C1894